=== PATIENT | female | born 1985 ===

== ENCOUNTER 2020-11-06 04:19 | Inpatient (IN) ==
[2020-11-06] MEDS ORDERED: OXYTOCIN 30 UNITS/500 ML BAG IV PRN ×2 (04:46→12:16)
[2020-11-06] MEDS ORDERED: PENICILLIN G POTASSIUM 6 MU in DEXTROSE 5% 250 ML IV STA (04:46)
[2020-11-06] MEDS: LACTATED RINGER'S 1,000 ML IV PRN ×2 (04:59→06:43)
[2020-11-06] MEDS ORDERED: fentaNYL citrate 100 MCG/2 ML VIAL ONE (05:29)
[2020-11-06] MEDS ORDERED: SODIUM CHLORIDE 0.9% INJ 10 ML VIAL ONE (05:29)
[2020-11-06] MEDS ORDERED: ePHEDrine sulfate 50 MG/ML AMP ONE (05:29)
[2020-11-06] MEDS ORDERED: BUPIVACAINE 0.25% 30 ML VIAL ONE (05:29)
[2020-11-06] MEDS ORDERED: fentaNYL 2MCG/ML ROPIVACAINE 1.25MG/ML 100 ML BAG EPI ONE (05:30)
[2020-11-06 05:32] LABS: Hematocrit (blood only) 36.5 % (37-47); Hemoglobin 12.4 g/dL (12.0-16.0); Mean Corpuscular Hemoglobin 29.7 pg (25-34); Mean Corpuscular Volume 87.3 fL (80-100); Mean Platelet Volume 11.5 fL (7.4-10.4); Platelet Count 167 K/uL (130-400); RDW Coefficient of Variation 14.6 % (11.5-14.5); RDW Standard Deviation 46.8 fL (36.4-46.3); Red Blood Count 4.18 M/uL (4.2-5.4); White Blood Count 12.15 K/uL (4.8-10.8)
[2020-11-06] MEDS ORDERED: fentaNYL 2MCG/ML ROPIVACAINE 1.25MG/ML 100 ML BAG EPI PRN (06:30)
[2020-11-06] MEDS ORDERED: NALOXONE HCL 0.4 MG/1 ML VIAL/CARP IV PRN (06:30)
[2020-11-06] MEDS ORDERED: ONDANSETRON INJ 2 MG/ML 2 ML VIAL IV PRN (06:30)
[2020-11-06] MEDS ORDERED: PROMETHAZINE HCL 6.25 MG in SODIUM CHLORIDE 0.9% 50 ML IV PRN (06:30)
[2020-11-06] MEDS ORDERED: diphenhydrAMINE 50 MG/ML VIAL IV PRN (06:30)
[2020-11-06] MEDS ORDERED: ePHEDrine sulfate 50 MG/ML AMP IV PRN (06:30)
[2020-11-06] MEDS ORDERED: NALOXONE HCL 1 MG in SODIUM CHLORIDE 0.9% 1000ML 1,000 ML IV PRN (06:30)
--- NOTE | 2020-11-06 06:30 | Anesthesiology Consultation ---
Date of Service November 06, 2020 Assessment & Plan (1) Encounter for pre-operative examination: Chart Review Chart Review: Patient NOT seen in Pre Admission Testing and Acceptable Risk for Labor Epidural Consults Requested none ASA ASA2 Proposed Anesthesia Anesthesia Type: CSE Risk / Benefits Reviewed With: PT / POA / Parent / Guardian, Accepts Plan and Informed Consent Obtained History Height/Weight Height: 5 ft 1 in Weight: 83.915 kg Allergies Allergy/AdvReac Type Severity Reaction Status Date / Time watermelon Allergy Mild Verified 11/01/20 15:17 Influenza Virus Vaccines Allergy Verified 11/01/20 15:17 Medications Home Medications Medication Instructions Recorded Confirmed Last Taken 21-iron fu-folic acid PO 02/01/19 11/01/20 Unknown Active Medications Generic Name Dose Route Start Last Admin Trade Name Freq PRN Reason Stop Dose Admin Lactated Ringer's 1,000 mls @ 125 mls/hr 11/06/20 04:46 11/06/20 05:50 Lr IV 11/08/20 04:45 125 mls/hr .Q8H PRN Infusion L&D Protocol Protocol Past Medical History Medical History Brain tumor (benign) History of chicken pox Vaginal infection Yeast infection Exercise / Class Metabolic Activity II 4-5 Yardwork/Stairs/Walk up hill Past Family History Family History Mother Thyroid cancer Denies family history of Ovarian cancer Breast cancer Colorectal cancer Past Surgical History Surgical History No history of previous surgery Past Anesthesia History No Hx of Anesthesia Complications and No Family Hx of Anesthesia Complications History of PONV No Hx of PONV and No Hx of Motion Sickness Social History Smoking Status: Never smoker Hx Alcohol Use: No Hx Substance Use: No Physical Exam Vital Signs Last Vital Signs Temp 36.5 C 11/06/20 05:00 Pulse 129 H 11/06/20 06:25 Resp 18 11/06/20 05:00 BP 93/50 L 11/06/20 06:23 Pulse Ox 98 11/06/20 06:25 ENMT Mouth: no dentition abnormality Thyromental Distance: > or= 3.5 Finger Breadths Mallampati Class: II Neck normal visual inspection Respiratory normal respiratory effort Auscultation: lungs clear to auscultation bilaterally Cardiovascular Rate/Rhythm: regular rate and regular rhythm Psychiatric Orientation: alert Lab Results Anesthesia Preop Results Results Anesthesia Widget: WBC 12.15 K/uL (4.8-10.8) H 11/06/20 Hgb 12.4 g/dL (12.0-16.0) 11/06/20 Hct 36.5 % (37-47) L 11/06/20 Plt 167 K/uL (130-400) 11/06/20 Testing Laboratory Results 11/06/20 05:14
[2020-11-06] MEDS ORDERED: PENICILLIN G POTASSIUM 3 MU in DEXTROSE 5% 100 ML IV PRN (09:00)
[2020-11-06] MEDS ORDERED: CALCIUM CARBONATE 500 MG CHEWABLE TAB PO PRN ×2 (10:23→15:13)
--- NOTE | 2020-11-06 12:04 | Delivery Summary ---
Vaginal Delivery Summary Date of Service November 06, 2020 Patient arrived in labor and delivery for Dr. Ferguson on the night before she requested epidural after that an artificial rupture of membranes was performed group B strep prophylaxis had been given and then the patient delivered after becoming fully dilated after pushing over 2 contractions. Fluid was clear there was no nuchal cord gentle traction on the baby no excessive force was used live vigorous male cord clamped and cut cord blood obtained placenta removed with gentle traction IV Pitocin started uterine tone improved There is a small first-degree tear repaired with 3-0 Vicryl rectal exam negative disc for defects or sutures sponge and instrument counts correct estimated blood loss 150 mL Vaginal Delivery Summary 1st Degree LAC [facility] Vaginal Delivery Charge Vaginal Delivery Codes: 75401 global code for the antepartum, delivery, and post- Delivery Type Details: 1st Degree LAC
[2020-11-06] MEDS ORDERED: BENZOCAINE 20% AER SPR 82.5 GM CAN EXT PRN (12:16)
[2020-11-06] MEDS ORDERED: bisacodyL 10 MG SUPP PR PRN (12:16)
[2020-11-06] MEDS ORDERED: ACETAMINOPHEN 325 MG TAB PO PRN (12:16)
[2020-11-06] MEDS ORDERED: oxyCODONE/ACETAMINOPHEN 5mg/325mg TAB PO PRN (12:16)
[2020-11-06] MEDS ORDERED: DIPHTHERIA/TETANUS/PERTUSSIS 0.5 ML SYR/VIAL IM ONE (12:16)
[2020-11-06] MEDS ORDERED: SUPERCREAM 0.870% 15 GM JAR EXT PRN (12:16)
[2020-11-06] MEDS ORDERED: HYDROCORTISONE ACETATE 25 MG SUPP PR PRN (12:16)
--- NOTE | 2020-11-06 13:12 | Anesthesia Procedure Note ---
Date of Service November 06, 2020 Anesthesia Post Epidural Note Vital Signs Vital Signs: Temp Pulse Resp BP Pulse Ox 98.1 F 111 H 20 109/72 96 11/06/20 09:59 11/06/20 13:05 11/06/20 09:59 11/06/20 13:05 11/06/20 12:10 Pain Intensity Lower Abdomen: Pain Intensity: 10 Notes Mental Status: alert / awake / arousable and participated in evaluation Nausea / Vomiting: adequately controlled Pain: adequately controlled Airway Patency, RR, SpO2: stable & adequate BP & HR: stable & adequate Hydration State: stable & adequate Neuraxial Anesthesia: was administered and sensory block is resolving Anesthetic Complications: no major complications apparent and Pt Satisfied with anesthetic care Epidural: Removed without complications and With tip intact
[2020-11-06] MEDS: IBUPROFEN 600 MG TAB PO PRN ×2 (16:59→20:56)
[2020-11-06] MEDS: DOCUSATE SODIUM 100 MG CAP PO SCH (20:56)
[2020-11-07 06:24] LABS: Hematocrit (blood only) 35.2 % (37-47); Hemoglobin 11.8 g/dL (12.0-16.0); Mean Corpuscular Hemoglobin 29.4 pg (25-34); Mean Corpuscular Hgb Conc 33.5 g/dL (32-36); Mean Corpuscular Volume 87.6 fL (80-100); Mean Platelet Volume 11.4 fL (7.4-10.4); Platelet Count 151 K/uL (130-400); RDW Coefficient of Variation 14.6 % (11.5-14.5); RDW Standard Deviation 46.7 fL (36.4-46.3); Red Blood Count 4.02 M/uL (4.2-5.4); White Blood Count 8.78 K/uL (4.8-10.8)
--- NOTE | 2020-11-07 07:28 | Obstetrical Progress Note ---
Date of Service November 07, 2020 Assessment & Plan (1) Supervision of elderly multigravida: ccc Subjective Ambulation: ambulating normally Voiding: no voiding problems Diet Tolerance:: regular diet Lochia:: Small Feeding Type:: breast feeding Physical Exam ext neg Results & Data ([facility]) Vital Signs (Past 12 Hours) Vital Signs Temp Pulse Resp BP 11/07/20 03:30 98.1 F 80 18 98/72 L 11/06/20 23:40 97.5 F L 76 18 111/71
[2020-11-07] MEDS: IBUPROFEN 600 MG TAB PO PRN ×2 (07:34→12:38)
[2020-11-07] MEDS: DOCUSATE SODIUM 100 MG CAP PO SCH (07:34)
[2020-11-07] MEDS ORDERED: PRENATAL VITAMIN 1 TAB PO SCH ×2 (08:00→09:00)
[2020-11-07] MEDS ORDERED: bisacodyL 5 MG TABEC PO SCH (20:00)
== END 2020-11-07 14:05 | disposition home or self-care (01) | DRG 807 ==
LOC: OPB 04:19 → 4S1 04:22 → 4S2 16:44